=== PATIENT | female | born 1980 | race Caucasian/White ===

== ENCOUNTER → 2016-09-01 | Outpatient (CLI) | payer SELFPAY ==
[~2016-09-01] MED LIST: ADDERALL20 MG PO; AMBIEN12.5 MG PO; BUSPIRONE15 MG PO; FLEXERIL 1010 MG/TAB PO; KLONOPIN 1MG1 MG PO; NORCO 325 MG-51 TAB PO; NORCO 325 MG-7.1 TAB PO; PRISTIQ100 MG PO; VIIBRYD10 MG PO
== END ==
LOC: EDBD 09:37 → BHSO 09:37
DX: F90.2 Attention-deficit hyperactivity disorder, combined type (principal)

== ENCOUNTER → 2017-03-30 | Outpatient (CLI) | payer SELFPAY | LOC: BHSO 10:20 | DX: F41.1 Generalized anxiety disorder (principal) | CPT/HCPCS: G0463 ==

== ENCOUNTER → 2017-08-15 | Outpatient (CLI) | payer SELFPAY | LOC: BHSO 09:58 | DX: F90.0 Attention-deficit hyperactivity disorder, predominantly inattentive type (principal) | CPT/HCPCS: G0463 ==

== ENCOUNTER → 2017-10-24 | Outpatient (CLI) | payer SELFPAY | LOC: BHSO 10:21 | DX: F33.42 Major depressive disorder, recurrent, in full remission (principal) ==

== ENCOUNTER → 2018-01-22 | Outpatient (CLI) | payer SELFPAY | LOC: BHSO 10:14 | DX: F33.42 Major depressive disorder, recurrent, in full remission (principal) | CPT/HCPCS: G0463 ==

== ENCOUNTER → 2018-05-24 | Outpatient (CLI) | payer SELFPAY | LOC: BHSO 14:40 | DX: F33.42 Major depressive disorder, recurrent, in full remission (principal) ==

== ENCOUNTER → 2018-10-28 | Outpatient (CLI) | payer SELFPAY | LOC: BHSO 13:43 | DX: F33.42 Major depressive disorder, recurrent, in full remission (principal) | CPT/HCPCS: G0463 ==

== ENCOUNTER → 2019-04-28 | Outpatient (CLI) | payer SELFPAY | LOC: BHSO 13:50 | DX: F33.42 Major depressive disorder, recurrent, in full remission (principal) | CPT/HCPCS: G0463 ==

== ENCOUNTER → 2019-10-28 | Outpatient (CLI) | payer SELFPAY | LOC: BHSO 14:14 | DX: F33.42 Major depressive disorder, recurrent, in full remission (principal) | CPT/HCPCS: G0463 ==